=== PATIENT | male | born 1990 | race Caucasian/White ===

== ENCOUNTER 2017-10-08 08:31 | Emergency (ER) | payer SELFPAY ==
--- NOTE | 2017-10-08 08:58 | Emergency Department Record ---
History of Present Illness - General Chief Complaint: Cough Stated Complaint: COUGH Time Seen by Provider: 10/08/17 08:37 Source: Patient, RN notes reviewed Mode of Arrival: Ambulatory - History of Present Illness Initial Comments: cough for 2.5 weeks and seen 7 days ago at [facility] and given antibiotic three times a day and it lasted about 6 days. Sore throat and it hurts with coughing and he had blood work and EKG done at [facility]. No fever, vomiting after a cough. Sleeping alot. Patient states he is eating and drinking OK. smokes cigs 1 ppd. two 16 year old children had the same thing and are better. MD Complaint: Cough, Nasal congestion, Rhinorrhea, Sore throat Onset/Timin -: Week(s) Severity: Moderate Severity scale (1-10): 6 Consistency: Constant - Related Data Home Medications Medication Instructions Recorded Confirmed Last Taken Benzonatate [Tessalon] 1 cap PO Q8H PRN 10/08/17 10/08/17 Unknown Previous Rx's Medication Instructions Recorded Albuterol Sulfate [Proair Hfa] 1 - 2 puff IH .EVERY 4-6 HOURS PRN 10/08/17 #1 inhaler Azithromycin 250 mg PO DAILY #6 tablet 10/08/17 Prednisone [Prednisone 10Mg] 10 mg PO ASDIR #30 tab 10/08/17 Allergies Allergy/AdvReac Type Severity Reaction Status Date / Time No Known Drug Allergies Allergy Verified 10/08/17 08:41 Travel Screening - Travel/Exposure Within Last 30 Days Have you traveled within the last 30 days?: No Review of Systems Reviewed: No additional complaints except as noted below Constitutional: Reports: As per HPI. Denies: Chills, Fever, Malaise, Night sweats, Weakness, Weight change Eyes: Reports: As per HPI. Denies: Eye discharge, Eye pain, Photophobia, Vision change ENT: Reports: As per HPI, Congestion, Throat pain. Denies: Dental pain, Ear pain, Epistaxis, Hearing loss Respiratory: Reports: As per HPI, Cough. Denies: Dyspnea, Hemoptysis, Stridor, Wheezes Cardiovascular: Reports: As per HPI. Denies: Arrhythmia, Chest pain, Dyspnea on exertion, Edema, Murmurs, Orthopnea, Palpitations, Paroxysmal nocturnal dyspnea, Rheumatic Fever, Syncope Endocrine: Reports: As per HPI. Denies: Fatigue, Heat or cold intolerance, Polydipsia, Polyuria Gastrointestinal: Reports: As per HPI. Denies: Abdominal pain, Constipation, Diarrhea, Hematemesis, Hematochezia, Melena, Nausea, Vomiting Genitourinary: Reports: As per HPI. Denies: Dysuria, Frequency, Hematuria, Incontinence, Retention, Testicular pain, Testicular mass, Urgency Musculoskeletal: Reports: As per HPI. Denies: Arthralgia, Back pain, Gout, Joint swelling, Myalgia, Neck pain Skin: Reports: As per HPI. Denies: Bruising, Change in color, Change in hair/ nails, Lesions, Pruritus, Rash Neurological: Reports: As per HPI. Denies: Abnormal gait, Confusion, Headache, Numbness, Paresthesias, Seizure, Tingling, Tremors, Vertigo, Weakness Psychiatric: Reports: As per HPI. Denies: Anxiety, Auditory hallucinations, Depression, Homicidal thoughts, Suicidal thoughts, Visual hallucinations Hematological/Lymphatic: Reports: As per HPI. Denies: Anemia, Blood Clots, Easy bleeding, Easy bruising, Swollen glands Past Medical History - SOCIAL HISTORY Smoking Status: Current every day smoker Alcohol Use: None Drug Use: None - RESPIRATORY Hx Respiratory Disorders: No - CARDIOVASCULAR Hx Cardio Disorders: No - NEURO Hx Neuro Disorders: No - GI Hx GI Disorders: No - Hx Genitourinary Disorders: No - ENDOCRINE Hx Endocrine Disorders: No - MUSCULOSKELETAL Hx Musculoskeletal Disorders: No - PSYCH Hx Psych Problems: No - HEMATOLOGY/ONCOLOGY Hx Hematology/Oncology Disorders: No Family Medical History Any Significant Family History?: No Physical Exam - General General Appearance: Alert, Oriented x3, Cooperative, No acute distress - Head Head exam: Normal inspection - Eye Eye exam: Normal appearance, PERRL Pupils: Normal accommodation - ENT ENT exam: Normal exam, Mucous membranes moist, Normal external ear exam, Normal orophraynx, TM's normal bilaterally Ear exam: Normal external inspection. negative: External canal tenderness Nasal Exam: Normal inspection. negative: Discharge, Sinus tenderness Mouth exam: Normal external inspection, Tongue normal Teeth exam: Normal inspection. negative: Dental caries Throat exam: Normal inspection. negative: Tonsillar erythema, Tonsillar exudate - Neck Neck exam: Normal inspection, Full ROM. negative: Tenderness - Respiratory Respiratory exam: Wheezes (scant ), Other (spasmotic cough with deep breaths). negative: Respiratory distress - Cardiovascular Cardiovascular Exam: Regular rate, Normal rhythm, Normal heart sounds - GI/Abdominal GI/Abdominal exam: Soft, Normal bowel sounds. negative: Tenderness - Rectal Rectal exam: Deferred - exam: Deferred - Extremities Extremities exam: Normal inspection, Full ROM, Normal capillary refill. negative: Tenderness - Back Back exam: Reports: Normal inspection, Full ROM. Denies: Muscle spasm, Rash noted, Tenderness - Neurological Neurological exam: Alert, Normal gait, Oriented X3, Reflexes normal - Psychiatric Psychiatric exam: Normal affect, Normal mood - Skin Skin exam: Dry, Intact, Normal color, Warm Course Vital Signs 10/08/17 08:33 Temperature 98.7 F Pulse Rate 99 H Respiratory 20 Rate Blood Pressure 120/77 Pulse Ox 96 - Reevaluation(s) Reevaluation #1: looked on [facility] and no evidence of him recieving an antibiotic. supportative care. 10/08/17 09:12 Medical Decision Making - Data Complexity MDM Data: Labs Ordered and/or Reviewed (wbc 14,300), X-Ray Ordered and/or Reviewed (neg chest xray) - Lab Data Result diagrams: 10/08/17 09:05 Disposition Clinical Impression: Bronchitis Disposition: Home, Self-Care Condition: (1) Good Instructions: Acute Bronchitis (ED) Additional Instructions: follow up with family Prescriptions: Albuterol Sulfate [Proair Hfa] 1 - 2 puff IH .EVERY 4-6 HOURS PRN #1 inhaler PRN Reason: Difficulty In Breathing Azithromycin 250 mg PO DAILY #6 tablet Prednisone [Prednisone 10Mg] 10 mg PO ASDIR #30 tab Forms: Patient Portal Access Time of Disposition: 09:28 Quality - Quality Measures Quality Measures: N/A - Blood Pressure Screening Does Patient Have Any of the Following: No Blood Pressure Classification: Pre-Hypertensive BP Reading Systolic Measurement: 120 Diastolic Measurement: 77 Screening for High Blood Pressure: < Pre-Hypertensive BP, F/U Documented > [ G8950] Pre-Hypertensive Follow-up Interventions: Referral to alternative/primary care provider.
[2017-10-08] MEDS: IPRATROPIUM/ALBUTEROL (0.5MG/3MG) NEB INH ONE (09:11)
[2017-10-08 09:14] LABS: BASO % 0.1 % (0-6); EOS % 0.6 % (0-6); HEMOGLOBIN 15.6 gm/dl (14.0-18.0); MEAN CELL VOLUME 89.6 fl (81-97); MEAN CORPUSCULAR HEMOGLOBIN 31.8 pg (27-33); MEAN CORPUSCULAR HGB CONC 35.5 g/dl (32-36); MEAN PLATELET VOLUME 9.6 fl (7.4-10.4); MONO % 7.3 % (0-9); PLATELET COUNT 332 K/uL (130-400); RED BLOOD COUNT 4.91 M/uL (4.40-5.70); WHITE BLOOD COUNT W/O DIFF 14.3 K/uL (4.2-12.2)
--- NOTE | 2017-10-09 08:00 | RADIOLOGY REPORT ---
DATE: 10/08/2017 at 0944. EXAM: CHEST, TWO VIEWS. HISTORY: Cough for three weeks, nonproductive. Smoking history. TECHNIQUE: Upright PA and lateral views of the chest. COMPARISON: None. FINDINGS: The heart is not enlarged, and the pulmonary vasculature is nondilated. The lungs and pleural spaces are clear. IMPRESSION: NO RADIOGRAPHIC EVIDENCE OF ACUTE CARDIOPULMONARY DISEASE. JOB NUMBER: [id number] MTDD
== END 2017-10-08 09:57 | disposition home or self-care (01) ==
LOC: ER 08:31
DX: J20.9 Acute bronchitis, unspecified (principal); J02.9 Acute pharyngitis, unspecified; F17.210 Nicotine dependence, cigarettes, uncomplicated
CPT/HCPCS: 71020; 85025; 94640; 99283; 99284

== ENCOUNTER 2017-11-15 11:08 | Emergency (ER) | payer SELFPAY ==
[2017-11-15] MEDS ORDERED: ONDANSETRON HCL IV 4 MG/2 ML VIAL IV ONE (11:19)
[2017-11-15] MEDS ORDERED: 0.9 % SODIUM CHLORIDE 1,000 ML BAG IV ONE (11:19)
[2017-11-15] MEDS ORDERED: MORPHINE SULFATE 5 MG/ML PFS IVP ONE ×2 (11:20→11:32)
--- NOTE | 2017-11-15 11:28 | Emergency Department Record ---
History of Present Illness - General Chief complaint: Flank Pain Stated complaint: PAIN Time Seen by Provider: 11/15/17 11:17 Source: Patient Mode of Arrival: Ambulatory Limitations: No limitations - History of Present Illness Initial comments: The patient is here due to the acute onset of L flank pain just over an hour ago. He is having nausea with it and it does radiate to his L groin. The patient states he has had kidney stones in the past and this feels similar. He denies any recent illnesses. MD Complaint: Other Onset/Timin -: Hour(s) Location: Abdomen, Left flank Severity: Moderate Severity scale (1-10): 10 Quality: Aching Consistency: Constant, Intermittent - Related Data Previous Rx's Medication Instructions Recorded Albuterol Sulfate [Proair Hfa] 1 - 2 puff IH .EVERY 4-6 HOURS PRN 10/08/17 #1 inhaler Hydrocodone/Acetaminophen [[place] 1 - 2 each PO .EVERY 4-6 HRS PRN 11/15/17 5-325 Tablet] #10 tablet Ibuprofen [Motrin] 800 mg PO TID PRN #20 tab 11/15/17 Allergies Allergy/AdvReac Type Severity Reaction Status Date / Time No Known Drug Allergies Allergy Verified 11/15/17 11:15 Travel Screening - Travel/Exposure Within Last 30 Days Have you traveled within the last 30 days?: No - Travel/Exposure Within Last Year Have you traveled outside the [place] in the last year?: No - Additonal Travel Details Have you been exposed to anyone with a communicable illness?: No - Travel Symptoms Symptom Screening: None Review of Systems Constitutional: Denies: Chills, Fever Eyes: Denies: Eye discharge ENT: Denies: Congestion, Other Respiratory: Denies: Cough, Dyspnea Past Medical History - SOCIAL HISTORY Smoking Status: Current every day smoker Alcohol Use: None Drug Use: None - RESPIRATORY Hx Respiratory Disorders: No - CARDIOVASCULAR Hx Cardio Disorders: No - NEURO Hx Neuro Disorders: No - GI Hx GI Disorders: No - Hx Kidney Stones: Yes - ENDOCRINE Hx Endocrine Disorders: No - MUSCULOSKELETAL Hx Musculoskeletal Disorders: No - PSYCH Hx Psych Problems: No - HEMATOLOGY/ONCOLOGY Hx Hematology/Oncology Disorders: No Family Medical History Any Significant Family History?: Yes Physical Exam - General General Appearance: Alert, Cooperative, Moderate distress (due to pain.) - Head Head exam: Atraumatic, Normocephalic - Eye Eye exam: Normal appearance, PERRL - Neck Neck exam: Normal inspection, Full ROM. negative: Tenderness - Respiratory Respiratory exam: Normal lung sounds bilaterally. negative: Respiratory distress - Cardiovascular Cardiovascular Exam: Regular rate, Normal rhythm, Normal heart sounds Course Vital Signs 11/15/17 11:11 Pulse Rate 109 H Respiratory 30 H Rate Blood Pressure 127/89 Pulse Ox 98 - Reevaluation(s) Reevaluation #1: The patient is doing better after his first dose of Morphine and is much more calm. 11/15/17 11:37 Reevaluation #2: The patient is doing a LOT better at this time. His pain has pretty much resolved. I did explain to him that he will need to see his PCP if not better in 2-3 days. 11/15/17 13:25 Medical Decision Making - Data Complexity MDM Data: Labs Ordered and/or Reviewed, X-Ray Ordered and/or Reviewed - Lab Data Result diagrams: 11/15/17 11:28 11/15/17 11:28 - Radiology Data Radiology results: Report reviewed (CT: 1 mm stone at the L UVJ with mild hydro. ) Disposition Disposition: Discharge Clinical Impression: Ureteral stone with hydronephrosis Disposition: Home, Self-Care Condition: (2) Stable Instructions: Ureteral Stones (ED) Additional Instructions: Please take the Motrin and or [place] for pain. Please see your family doctor if not better in 3 days. Return to the ER for any worsening pain, fever, or vomiting. Prescriptions: Hydrocodone/Acetaminophen [[place] 5-325 Tablet] 1 - 2 each PO .EVERY 4-6 HRS PRN #10 tablet PRN Reason: Pain Ibuprofen [Motrin] 800 mg PO TID PRN #20 tab PRN Reason: Pain Forms: Patient Portal Access Time of Disposition: 13:27 Quality - Quality Measures Quality Measures: N/A - Blood Pressure Screening View Details: Yes Does Patient Have Any of the Following: No Blood Pressure Classification: Pre-Hypertensive BP Reading Systolic Measurement: 127 Diastolic Measurement: 89 Screening for High Blood Pressure: < Pre-Hypertensive BP, F/U Documented > [ G8950] Pre-Hypertensive Follow-up Interventions: Referral to alternative/primary care provider.
[2017-11-15 11:34] LABS: HEMATOCRIT 43.8 % (42.0-52.0); HEMOGLOBIN 15.3 gm/dl (14.0-18.0); MEAN CELL VOLUME 89.9 fl (81-97); MEAN CORPUSCULAR HEMOGLOBIN 31.4 pg (27-33); MEAN CORPUSCULAR HGB CONC 34.9 g/dl (32-36); MEAN PLATELET VOLUME 9.7 fl (7.4-10.4); PLATELET COUNT 353 K/uL (130-400); RED BLOOD COUNT 4.87 M/uL (4.40-5.70); RED CELL DISTRIBUTION WIDTH 12.4 % (11.5-14.5); WHITE BLOOD COUNT W/O DIFF 15.4 K/uL (4.2-12.2)
[2017-11-15 11:42] LABS: BLOOD UREA NITROGEN 13 mg/dL (6-20); CREATININE 1.1 mg/dL (0.7-1.2); EST GLOMERULAR FILTRATION RATE > 60 mL/min
[2017-11-15 11:45] LABS: GLUCOSE,RANDOM 154 mg/dL (74-109)
[2017-11-15] MEDS ORDERED: KETOROLAC 30 MG/ML VIAL IVP ONE (11:49)
[2017-11-15 13:14] LABS: URINE APPEARANCE CLEAR; URINE BILIRUBIN NEGATIVE (NEGATIVE); URINE BLOOD LARGE (NEGATIVE); URINE COLOR YELLOW; URINE GLUCOSE (UA) NEGATIVE (NEGATIVE); URINE KETONE NEGATIVE (NEGATIVE); URINE LEUKOCYTE ESTERASE NEGATIVE (NEGATIVE); URINE NITRITE NEGATIVE (NEGATIVE); URINE PROTEIN NEGATIVE (NEGATIVE); URINE UROBILINOGEN 0.2 E.U./dL (0.20 - 1.00)
[2017-11-15 13:19] LABS: URINE RBC >50 (NONE SEEN)
[2017-11-15 13:20] LABS: URINE MUCUS 2+
--- NOTE | 2017-11-16 19:13 | CT SCAN REPORT ---
EXAM: CT SCAN ABDOMEN/PELVIS WO CONTRAST HISTORY: LEFT-SIDED LOWER ABDOMINAL PAIN FOR TWO HOURS. KIDNEY STONE HISTORY. TECHNIQUE: Thin-collimation helical CT examination of the abdomen and pelvis is performed without oral or intravenous contrast administration. Lack of oral and IV contrast utilization limits evaluation of the bowel and solid viscera, respectively. COMPARISON: None. FINDINGS: The lung bases are clear. No pleural or pericardial effusion. The heart is not enlarged. Mild bilateral gynecomastia. The liver, spleen, pancreas, and adrenal glands are normal in appearance. The gallbladder is unremarkable. No biliary ductal dilatation is seen. The right kidney and right renal collecting system are normal in appearance. The left kidney is mildly enlarged with slight perinephric fat stranding. No left nephrolithiasis nor left renal mass. There is mild left hydroureteronephrosis down to the level of the vesicoureteral junction. Evaluation of the urinary bladder is limited due to a lack of distention, though there may be a tiny calculus measuring 1 mm projecting into the bladder lumen at the UVJ level. If this is not a calculus, this appearance could be the result of recently passed stone or obstruction from debris due to infection. No pelvic mass, lymphadenopathy, or free pelvic fluid. No gross bowel dilatation or bowel wall thickening. The appendix is visualized and normal in appearance. No lytic or blastic bone lesion. IMPRESSION: MILD LEFT HYDROURETERONEPHROSIS DOWN TO THE LEVEL OF THE VESICOURETERAL JUNCTION. THERE IS AN EQUIVOCAL 1 MM CALCULUS QUESTIONED PROJECTING INTO THE BLADDER LUMEN AT THE LEVEL OF THE UVJ VS. ARTIFACT. A RECENTLY PASSED STONE COULD HAVE THIS APPEARANCE. INFECTION COULD ALSO CAUSE MILD CHANGES OF OBSTRUCTION. JOB NUMBER: [id number] [facility]
== END 2017-11-15 13:34 | disposition home or self-care (01) ==
LOC: ER 11:08
DX: N13.2 Hydronephrosis with renal and ureteral calculous obstruction (principal); Z87.442 Personal history of urinary calculi
CPT/HCPCS: 99284 ×2; 96374; 96375; 80048; 81001; 85027; 74176; J1885; J2405; J2270; J7030

== ENCOUNTER 2018-07-16 14:37 | Emergency (ER) | payer SELFPAY ==
[2018-07-16] MEDS ORDERED: ONDANSETRON HCL IV 4 MG/2 ML VIAL IV ONE (15:22)
[2018-07-16] MEDS ORDERED: 0.9 % SODIUM CHLORIDE 1,000 ML BAG IV ONE ×2 (15:22→16:45)
--- NOTE | 2018-07-16 15:24 | Emergency Department Record ---
History of Present Illness - General Chief Complaint: Abdominal Pain Stated Complaint: ABD PAIN, DIARREAH, HEAD ACHE Time Seen by Provider: 07/16/18 15:17 Source: Patient Mode of Arrival: Ambulatory Limitations: No limitations - History of Present Illness Initial Comments: The patient is here due to a 30 hour hx of frequent nausea, vomiting, and watery diarrhea. The patient also is having a lot of abdominal cramping. He denies any fever or dysuria and states his girlfriend has a similar issue. There is no hx of back pain, CP, SOB but he does have a mild ROTH. MD Complaint: Abdominal pain, Other Onset/Timin -: Days(s) Location: Diffuse Radiation: None Severity scale (1-10): 3 Quality: Aching, Cramping Consistency: Constant Improves With: Nothing Worsens With: Nothing Associated Symptoms: Diarrhea, Nausea, Vomiting - Related Data Previous Rx's Medication Instructions Recorded Ciprofloxacin HCl [Cipro] 500 mg PO Q12HR #6 tablet 07/16/18 Ondansetron [Zofran Odt] 4 mg SL .Q4-6H PRN #12 tab.rapdis 07/16/18 Allergies Allergy/AdvReac Type Severity Reaction Status Date / Time No Known Drug Allergies Allergy Verified 11/15/17 11:15 Travel Screening - Travel/Exposure Within Last 30 Days Have you traveled within the last 30 days?: No Review of Systems Constitutional: Reports: Malaise. Denies: Chills, Fever Eyes: Denies: Eye discharge ENT: Denies: Congestion Respiratory: Denies: Cough, Dyspnea Cardiovascular: Denies: Arrhythmia, Chest pain Endocrine: Reports: Fatigue Gastrointestinal: Reports: Diarrhea, Nausea, Vomiting Genitourinary: Denies: Dysuria Musculoskeletal: Denies: Arthralgia Past Medical History - SOCIAL HISTORY Smoking Status: Current every day smoker Alcohol Use: None Drug Use: None - RESPIRATORY Hx Respiratory Disorders: No - CARDIOVASCULAR Hx Cardio Disorders: No - NEURO Hx Neuro Disorders: No - GI Hx GI Disorders: No - Hx Genitourinary Disorders: No Hx Kidney Stones: Yes - ENDOCRINE Hx Endocrine Disorders: No - MUSCULOSKELETAL Hx Musculoskeletal Disorders: No - PSYCH Hx Psych Problems: No - HEMATOLOGY/ONCOLOGY Hx Hematology/Oncology Disorders: No Family Medical History Any Significant Family History?: No Physical Exam - General General Appearance: Alert, Oriented x3, Cooperative, No acute distress - Head Head exam: Atraumatic, Normocephalic, Normal inspection - Eye Eye exam: Normal appearance, PERRL, EOMI - ENT Throat exam: Normal inspection. negative: Tonsillar erythema, Tonsillar exudate - Neck Neck exam: Normal inspection, Full ROM. negative: Tenderness - Respiratory Respiratory exam: Normal lung sounds bilaterally. negative: Respiratory distress - Cardiovascular Cardiovascular Exam: Regular rate, Normal rhythm, Normal heart sounds - GI/Abdominal GI/Abdominal exam: Soft, Normal bowel sounds. negative: Rebound, Rigid, Tenderness - Extremities Extremities exam: Normal inspection, Full ROM, Normal capillary refill. negative: Tenderness - Neurological Neurological exam: Alert. negative: Motor sensory deficit Course Vital Signs 07/16/18 15:14 Temperature 99.0 F Pulse Rate [ 89 Pulse Ox Probe] Respiratory 18 Rate Blood Pressure 108/71 [Left Arm] Pulse Ox 97 - Reevaluation(s) Reevaluation #1: The patient is doing a lot better at this time. He is resting comfortably with no pain now. I did discuss the lab results and the need for an oral Abx and F/U next week. 07/16/18 16:37 Reevaluation #2: The patient is doing well at this time. He is up walking and has much less discomfort. He has had no further vomiting or diarrhea here in the ER. He did receive 2 liters of IVF and is much better. On exam his abdomen is very soft and nontender in all 4 quads. 07/16/18 17:31 Medical Decision Making - Data Complexity MDM Data: Labs Ordered and/or Reviewed, X-Ray Ordered and/or Reviewed - Lab Data Result diagrams: 07/16/18 15:40 07/16/18 15:40 - Radiology Data Radiology results: Report reviewed (CT: Prob infectious Colitis.) Disposition Disposition: Discharge Clinical Impression: Nausea vomiting and diarrhea Disposition: Home, Self-Care Condition: (2) Stable Instructions: Gastroenteritis (ED) Additional Instructions: Please drink plenty of fluids and take the Zofran as needed. Please use the Cipro for 3 days. Please see your family doctor for recheck in 4 days if not completely better. Return to the ER for any worsening pain, fever, vomiting, or diarrhea. Prescriptions: Ciprofloxacin HCl [Cipro] 500 mg PO Q12HR #6 tablet Ondansetron [Zofran Odt] 4 mg SL .Q4-6H PRN #12 tab.rapdis PRN Reason: Nausea Forms: Patient Portal Access Time of Disposition: 17:34 Quality - Quality Measures Quality Measures: N/A - Blood Pressure Screening View Details: Yes Does Patient Have Any of the Following: No Blood Pressure Classification: Normal BP Reading Systolic Measurement: 110 Diastolic Measurement: 72 Screening for High Blood Pressure: < Normal BP, F/U Not Required > [G8783]
[2018-07-16 15:58] LABS: BASO % 0.1 % (0-6); EOS % 0.2 % (0-6); GRAN % 79.3 % (47-80); HEMATOCRIT 45.7 % (42.0-52.0); LYMPH % 11.4 % (16-45); MEAN CORPUSCULAR HEMOGLOBIN 31.5 pg (27-33); MEAN PLATELET VOLUME 9.6 fl (7.4-10.4); PLATELET COUNT 291 K/uL (130-400); RED BLOOD COUNT 5.08 M/uL (4.40-5.70); RED CELL DISTRIBUTION WIDTH 12.4 % (11.5-14.5); WHITE BLOOD COUNT W/O DIFF 9.7 K/uL (4.2-12.2)
[2018-07-16 16:13] LABS: BLOOD UREA NITROGEN 15 mg/dL (6-20); CREATININE 0.9 mg/dL (0.7-1.2); EST GLOMERULAR FILTRATION RATE > 60 mL/min
[2018-07-16 16:15] LABS: GLUCOSE,RANDOM 89 mg/dL (74-109)
[2018-07-16] MEDS ORDERED: KETOROLAC 30 MG/ML VIAL IVP ONE (16:16)
[2018-07-16 16:18] LABS: ALBUMIN 4.7 g/dL (4.0-5.0); ALKALINE PHOSPHATASE 80 U/L (40-129); ALT/SGPT 25 U/L (<41); AST/SGOT 22 U/L (10.0-50.0); BILIRUBIN,DIRECT < 0.2 mg/dL (0-0.3); LIPASE 18 U/L (13-60)
[2018-07-16 16:42] LABS: URINE APPEARANCE CLEAR; URINE BILIRUBIN MODERATE (NEGATIVE); URINE BLOOD SMALL (NEGATIVE); URINE GLUCOSE (UA) NEGATIVE (NEGATIVE); URINE LEUKOCYTE ESTERASE NEGATIVE (NEGATIVE); URINE NITRITE NEGATIVE (NEGATIVE); URINE UROBILINOGEN 0.2 E.U./dL (0.20 - 1.00)
[2018-07-16 16:43] LABS: URINE KETONE 160 mg/dL (NEGATIVE)
[2018-07-16 16:44] LABS: URINE COLOR DARK YELLOW
[2018-07-16 16:50] LABS: URINE EPITHELIAL CELLS NONE SEEN (FEW); URINE RBC 0 - 2 (NONE SEEN); URINE WBC NONE SEEN (0-2/hpf)
--- NOTE | 2018-07-20 13:11 | CT SCAN REPORT ---
EXAM: CT OF THE ABDOMEN AND PELVIS WITHOUT IV CONTRAST HISTORY: NAUSEA, VOMITING, AND DIARRHEA. TECHNIQUE: Helical CT scan of the abdomen and pelvis was obtained without intravenous or oral contrast. Comparison: CT of the pelvis 11/15/17, mild left hydronephrosis. FINDINGS: There is limited evaluation of the solid organs without intravenous contrast. The lung bases are clear. The liver and spleen have normal size. No inflammatory changes of the pancreas. No calcified gallstones. No renal or ureteral calculi. Interval resolution of the left hydronephrosis. Mild thickening of the colon, particularly the ascending and transverse colon. The appendix is normal. The small bowel has a normal caliber. No extraluminal gas or fluid. No adenopathy. The bony structures show mild degenerative changes of the spine. Old superior end plate injury of the L2 vertebral body. IMPRESSION: 1. FINDINGS OF COLITIS, LIKELY INFECTIOUS, ALTHOUGH INFLAMMATORY COLITIS IS ALSO POSSIBLE. 2. NORMAL APPENDIX. 3. NO EVIDENCE OF BOWEL OBSTRUCTION. 4. INTERVAL RESOLUTION OF THE LEFT HYDRONEPHROSIS. JOB NUMBER: [id number] [facility]
== END 2018-07-16 18:10 | disposition home or self-care (01) ==
LOC: ER 14:37
DX: K52.9 Noninfective gastroenteritis and colitis, unspecified (principal); R19.7 Diarrhea, unspecified; R11.2 Nausea with vomiting, unspecified
CPT/HCPCS: 99284 ×2; 96374; 96375; 96361; 83690; 85025; 80076; 80048; 81001; 74176; J1885; J2405; J7030

== ENCOUNTER 2018-11-30 13:03 | Emergency (ER) | payer SELFPAY ==
--- NOTE | 2018-11-30 13:26 | Emergency Department Record ---
History of Present Illness - General Chief complaint: Male Urogenital Problem Stated complaint: GROWTH ON RT TESTICLE Time Seen by Provider: 11/30/18 13:09 Source: Patient Mode of Arrival: Ambulatory Limitations: No limitations - History of Present Illness Initial comments: The patient has had a tender growth on the R side of the scrotum for 1-2 months. Now he seems to have pain being referred from the scrotum to the RLQ. The patient denies any nausea, vomiting, dysuria, fever or hematuria. He has had a ureter stone on the L side in the past. The patient did have a CT scan just over 4 months ago that did not demonstrate any stones in the kidneys. MD Complaint: Other Onset/Timin -: Month(s) Location: Right flank Radiation: R flank, RLQ Severity scale (1-10): 3 Quality: Dull, Sharp Consistency: Constant Improves with: Rest Worsens with: Movement - Related Data Sexually active: No (not in past couple month.) Previous Rx's Medication Instructions Recorded Cephalexin [Keflex] 500 mg PO QID #28 cap 11/30/18 Allergies Allergy/AdvReac Type Severity Reaction Status Date / Time No Known Drug Allergies Allergy Verified 11/15/17 11:15 Travel Screening - Travel/Exposure Within Last 30 Days Have you traveled within the last 30 days?: No - Travel/Exposure Within Last Year Have you traveled outside the [place] in the last year?: No - Additonal Travel Details Have you been exposed to anyone with a communicable illness?: No - Travel Symptoms Symptom Screening: None Review of Systems Constitutional: Denies: Chills, Fever Eyes: Denies: Eye discharge ENT: Denies: Congestion Respiratory: Denies: Cough, Dyspnea Past Medical History - SOCIAL HISTORY Smoking Status: Current every day smoker Alcohol Use: Rare Drug Use: None - RESPIRATORY Hx Respiratory Disorders: No - CARDIOVASCULAR Hx Cardio Disorders: No - NEURO Hx Neuro Disorders: No - GI Hx GI Disorders: No - Hx Genitourinary Disorders: No Hx Kidney Stones: Yes - ENDOCRINE Hx Endocrine Disorders: No - MUSCULOSKELETAL Hx Musculoskeletal Disorders: No - PSYCH Hx Psych Problems: No - HEMATOLOGY/ONCOLOGY Hx Hematology/Oncology Disorders: No Family Medical History Any Significant Family History?: No Physical Exam - General General Appearance: Alert, Cooperative, No acute distress - Head Head exam: Atraumatic, Normocephalic - Eye Eye exam: Normal appearance, PERRL - Neck Neck exam: Normal inspection, Full ROM. negative: Tenderness - Respiratory Respiratory exam: Normal lung sounds bilaterally. negative: Respiratory distress - Cardiovascular Cardiovascular Exam: Regular rate, Normal rhythm, Normal heart sounds - GI/Abdominal GI/Abdominal exam: Soft, Normal bowel sounds. negative: Distended, Guarding, Hernia, Rebound, Rigid, Tenderness - exam: negative: Circumcision, Normal inspection (There is a 7x7 mm size tender nodule to the proximal R scrotal area on the skin. There is no overlying erythema or ANY flunctuance but the nodule is quite tender. It clearly is not associated with the R testicle.), Scrotal swelling, Testicular tenderness, Urethral discharge - Extremities Extremities exam: Normal inspection, Full ROM, Normal capillary refill. negative: Tenderness Course Vital Signs 11/30/18 13:12 Temperature 99.4 F Pulse Rate [ 102 H Pulse Ox Probe] Respiratory 18 Rate Blood Pressure 132/84 [Left Arm] Pulse Ox 95 - Reevaluation(s) Reevaluation #1: I did explain to the patient that it appears he has an infected hair follicle on the skin of the scrotum. He is to take Keflex as directed and to see his PCP or Dr. Rodriguez next week as directed. He also is to use warm compresses to the area when possible. 11/30/18 14:00 Medical Decision Making - Lab Data Result diagrams: 11/30/18 13:20 11/30/18 13:20 Disposition Disposition: Discharge Clinical Impression: Single skin nodule Disposition: Home, Self-Care Condition: (2) Stable Instructions: Cyst (ED) Additional Instructions: Please use Keflex as directed and use warm compresses to the R scrotal area when possible. Please see your family doctor and Dr. Rodriguez next week as directed. Return the ER for any worsening pain, swelling, redness or fever. Prescriptions: Cephalexin [Keflex] 500 mg PO QID #28 cap Referrals: [facility] Special[facility] [Provider Group] Forms: Patient Portal Access Time of Disposition: 14:03 Quality - Quality Measures Quality Measures: N/A - Blood Pressure Screening View Details: Yes Does Patient Have Any of the Following: No Blood Pressure Classification: Normal BP Reading Systolic Measurement: 115 Diastolic Measurement: 79 Screening for High Blood Pressure: < Normal BP, F/U Not Required > [G0038]
[2018-11-30 13:32] LABS: BASO % 0.3 % (0-6); EOS % 0.5 % (0-6); HEMATOCRIT 46.1 % (42.0-52.0); LYMPH % 17.6 % (16-45); MEAN CELL VOLUME 90.4 fl (81-97); MEAN CORPUSCULAR HEMOGLOBIN 31.4 pg (27-33); MEAN CORPUSCULAR HGB CONC 34.7 g/dl (32-36); MEAN PLATELET VOLUME 9.9 fl (7.4-10.4); MONO % 7.6 % (0-9); PLATELET COUNT 352 K/uL (130-400); RED CELL DISTRIBUTION WIDTH 12.5 % (11.5-14.5); WHITE BLOOD COUNT W/O DIFF 10.7 K/uL (4.2-12.2)
[2018-11-30 13:36] LABS: URINE APPEARANCE CLEAR; URINE BILIRUBIN NEGATIVE (NEGATIVE); URINE BLOOD NEGATIVE (NEGATIVE); URINE COLOR YELLOW; URINE GLUCOSE (UA) NEGATIVE (NEGATIVE); URINE KETONE NEGATIVE (NEGATIVE); URINE LEUKOCYTE ESTERASE NEGATIVE (NEGATIVE); URINE NITRITE NEGATIVE (NEGATIVE); URINE PROTEIN TRACE (NEGATIVE)
[2018-11-30 13:39] LABS: BLOOD UREA NITROGEN 13 mg/dL (6-20)
[2018-11-30 13:40] LABS: CREATININE 0.7 mg/dL (0.7-1.2); EST GLOMERULAR FILTRATION RATE > 60 mL/min; TOTAL PROTEIN 8.1 g/dL (6.6-8.7)
[2018-11-30 13:42] LABS: GLUCOSE,RANDOM 103 mg/dL (74-109)
[2018-11-30 13:45] LABS: ALB/GLOB RATIO 1.5 (1.1-1.8); ALBUMIN 4.8 g/dL (4.0-5.0); ALKALINE PHOSPHATASE 86 U/L (55-149); ALT/SGPT 33 U/L (<41); AST/SGOT 26 U/L (10.0-50.0)
== END 2018-11-30 14:17 | disposition home or self-care (01) ==
LOC: ER 13:03
DX: N49.2 Inflammatory disorders of scrotum (principal); L73.9 Follicular disorder, unspecified; R10.31 Right lower quadrant pain; F17.210 Nicotine dependence, cigarettes, uncomplicated; Z87.442 Personal history of urinary calculi
CPT/HCPCS: 80053; 81003; 85025; 99283

== ENCOUNTER 2018-12-31 21:52 | Emergency (ER) | payer SELFPAY ==
[2018-12-31] MEDS ORDERED: IPRATROPIUM/ALBUTEROL (0.5MG/3MG) NEB INH ONE (22:20)
[2018-12-31] MEDS ORDERED: ACETAMINOPHEN 500 MG TABLET PO ONE (22:21)
[2018-12-31 22:38] LABS: STREP A SCREEN NEGATIVE (NEGATIVE)
--- NOTE | 2018-12-31 22:39 | Emergency Department Record ---
History of Present Illness - General Chief Complaint: Cough Stated Complaint: EAR PAIN,COUGH Time Seen by Provider: 12/31/18 22:13 Source: Patient Mode of Arrival: Ambulatory Limitations: No limitations - History of Present Illness Initial Comments: pt states he has a cough, congestion, sore throat, magallon Complaint: Cough, Fever, Nasal congestion, Rhinorrhea, Sore throat Onset/Timin -: Days(s) Severity scale (1-10): 4 Consistency: Constant Improves With: Cough suppressant Worsens With: Deep breaths Context: Sick contacts Associated Symptoms: Chills, Cough, Fever, Nasal congestion, Rhinorrhea, Shortness of breath, Sore throat - Related Data Home Medications Medication Instructions Recorded Confirmed Last Taken No Home Med [NO HOME MEDS] 12/31/18 12/31/18 Unknown Allergies Allergy/AdvReac Type Severity Reaction Status Date / Time No Known Drug Allergies Allergy Verified 11/15/17 11:15 Travel Screening - Travel/Exposure Within Last 30 Days Have you traveled within the last 30 days?: No - Travel Symptoms Symptom Screening: None Review of Systems Reviewed: No additional complaints except as noted below Constitutional: Reports: As per HPI, Chills, Fever. Denies: Malaise, Night sweats, Weakness, Weight change Eyes: Reports: As per HPI. Denies: Eye discharge, Eye pain, Photophobia, Vision change ENT: Reports: As per HPI, Congestion. Denies: Dental pain, Ear pain, Epistaxis , Hearing loss, Throat pain Respiratory: Reports: As per HPI, Cough, Dyspnea. Denies: Hemoptysis, Stridor, Wheezes Cardiovascular: Reports: As per HPI. Denies: Arrhythmia, Chest pain, Dyspnea on exertion, Edema, Murmurs, Orthopnea, Palpitations, Paroxysmal nocturnal dyspnea, Rheumatic Fever, Syncope Endocrine: Reports: As per HPI. Denies: Fatigue, Heat or cold intolerance, Polydipsia, Polyuria Gastrointestinal: Reports: As per HPI. Denies: Abdominal pain, Constipation, Diarrhea, Hematemesis, Hematochezia, Melena, Nausea, Vomiting Genitourinary: Reports: As per HPI. Denies: Dysuria, Frequency, Hematuria, Incontinence, Retention, Testicular pain, Testicular mass, Urgency Musculoskeletal: Reports: As per HPI. Denies: Arthralgia, Back pain, Gout, Joint swelling, Myalgia, Neck pain Skin: Reports: As per HPI. Denies: Bruising, Change in color, Change in hair/ nails, Lesions, Pruritus, Rash Neurological: Reports: As per HPI. Denies: Abnormal gait, Confusion, Headache, Numbness, Paresthesias, Seizure, Tingling, Tremors, Vertigo, Weakness Psychiatric: Reports: As per HPI. Denies: Anxiety, Auditory hallucinations, Depression, Homicidal thoughts, Suicidal thoughts, Visual hallucinations Hematological/Lymphatic: Reports: As per HPI. Denies: Anemia, Blood Clots, Easy bleeding, Easy bruising, Swollen glands Past Medical History - SOCIAL HISTORY Smoking Status: Current every day smoker - RESPIRATORY Hx Respiratory Disorders: No - CARDIOVASCULAR Hx Cardio Disorders: No - NEURO Hx Neuro Disorders: No - GI Hx GI Disorders: No - Hx Genitourinary Disorders: Yes Hx Kidney Stones: Yes - ENDOCRINE Hx Endocrine Disorders: No - MUSCULOSKELETAL Hx Musculoskeletal Disorders: No - PSYCH Hx Psych Problems: No - HEMATOLOGY/ONCOLOGY Hx Hematology/Oncology Disorders: No Family Medical History Any Significant Family History?: Yes Hx Heart Disease: Grandparents Hx Stroke: Grandparents Physical Exam - General General Appearance: Alert, Oriented x3, Cooperative, Mild distress - Head Head exam: Normal inspection - Eye Eye exam: Normal appearance, PERRL, EOMI Pupils: Normal accommodation - ENT ENT exam: Normal exam, Mucous membranes moist, Normal external ear exam, Normal orophraynx, TM's normal bilaterally Ear exam: Normal external inspection. negative: External canal tenderness Nasal Exam: Normal inspection. negative: Discharge, Sinus tenderness Mouth exam: Normal external inspection, Tongue normal Teeth exam: Normal inspection. negative: Dental caries Throat exam: Tonsillar erythema. negative: Tonsillar exudate - Neck Neck exam: Normal inspection, Full ROM. negative: Tenderness - Respiratory Respiratory exam: Normal lung sounds bilaterally. negative: Respiratory distress - Cardiovascular Cardiovascular Exam: Normal rhythm, Normal heart sounds, Tachycardia - GI/Abdominal GI/Abdominal exam: Soft, Normal bowel sounds. negative: Tenderness - Rectal Rectal exam: Deferred - exam: Deferred - Extremities Extremities exam: Normal inspection, Full ROM, Normal capillary refill. negative: Tenderness - Back Back exam: Reports: Normal inspection, Full ROM. Denies: Muscle spasm, Rash noted, Tenderness - Neurological Neurological exam: Alert, Normal gait, Oriented X3, Reflexes normal - Psychiatric Psychiatric exam: Normal affect, Normal mood - Skin Skin exam: Dry, Intact, Normal color, Warm Course Vital Signs 12/31/18 21:55 Temperature 100.7 F H Pulse Rate 100 H Respiratory 18 Rate Blood Pressure 124/81 Pulse Ox 98 - Reevaluation(s) Reevaluation #1: 12/31/18 23:06 pt feels better Disposition Disposition: Discharge Clinical Impression: Viral syndrome Disposition: Home, Self-Care Condition: (1) Good Instructions: Cold Symptoms (ED), Viral Syndrome (ED) Additional Instructions: follow up with family doctor. return sooner if worse. push fluids. tylenol and motrin as needed. Quality - Quality Measures Quality Measures: N/A - Blood Pressure Screening Does Patient Have Any of the Following: No Blood Pressure Classification: Pre-Hypertensive BP Reading Systolic Measurement: 124 Diastolic Measurement: 81 Screening for High Blood Pressure: < Pre-Hypertensive BP, F/U Documented > [ G8950] Pre-Hypertensive Follow-up Interventions: Follow-up with rescreen every year.
[2018-12-31 22:47] LABS: INFLUENZA A NEGATIVE (NEGATIVE); INFLUENZA B NEGATIVE (NEGATIVE)
[2018-12-31] MEDS ORDERED: GUAIFENESIN/D-METH. 10 ML UDC PO ONE (23:08)
--- NOTE | 2019-01-03 11:59 | RADIOLOGY REPORT ---
DATE: 12/31/2018 at 10:32 p.m. EXAM: TWO-VIEW CHEST. HISTORY: Shortness of breath, cough, ear pain for two to three days. TECHNIQUE: PA and lateral views. COMPARISON: Two-view chest dated 10/08/2017. FINDINGS: Heart size at about the upper limits of normal. No definite acute infiltrate seen, and no pleural effusion or pneumothorax evident. IMPRESSION: HEART SIZE AT ABOUT THE UPPER LIMITS OF NORMAL. NO ACUTE INFILTRATE EVIDENT. JOB NUMBER: [id number] MTDD
== END 2018-12-31 23:19 | disposition home or self-care (01) ==
LOC: ER 21:52
DX: B34.9 Viral infection, unspecified (principal); R05 Cough; R06.02 Shortness of breath; R42 Dizziness and giddiness; F17.210 Nicotine dependence, cigarettes, uncomplicated
CPT/HCPCS: 71046; 87400; 87880; 93005; 93010; 94640; 99284

== ENCOUNTER 2019-04-06 15:35 | Emergency (ER) | payer SELFPAY ==
--- NOTE | 2019-04-06 16:01 | Emergency Department Record ---
History of Present Illness - General Chief Complaint: Neck Injury/Pain Stated Complaint: PAIN UNDER CHIN Time Seen by Provider: 04/06/19 15:52 Source: Patient Mode of Arrival: Ambulatory Limitations: No limitations - History of Present Illness Initial Comments: 29 yo male presents with three days of pain. The pain is on the left side of the neck. No injury. No fever. He pain with swallowing but no difficulty with swallowing. He has pain with any palpation, and turning or looking up and to the right. He felt like he might have some swollen glands. No changes in his voice. No dental pain. No trauma. MD Complaint: Neck pain -: Days(s) (3) Place: Home Radiation: Other (Neck) Severity: Moderate Quality: Sharp Consistency: Constant Improves With: None Worsens With: Movement of neck, Swallowing Context: Other (No injury) Associated Symptoms: Swollen glands Treatments Prior to Arrival: Ibuprofen - Related Data Previous Rx's Medication Instructions Recorded Cephalexin [Keflex] 500 mg PO TID #21 cap 04/06/19 Allergies Allergy/AdvReac Type Severity Reaction Status Date / Time No Known Drug Allergies Allergy Verified 04/06/19 15:54 Review of Systems Constitutional: Denies: Chills, Fever, Malaise, Weakness Eyes: Denies: Eye discharge ENT: Reports: Throat pain. Denies: Congestion, Dental pain, Epistaxis Respiratory: Reports: Cough. Denies: Dyspnea, Hemoptysis, Stridor Cardiovascular: Denies: Chest pain, Palpitations, Syncope Endocrine: Denies: Fatigue Gastrointestinal: Denies: Abdominal pain, Diarrhea, Nausea, Vomiting Genitourinary: Denies: Dysuria, Frequency, Hematuria Musculoskeletal: Denies: Arthralgia, Myalgia Skin: Denies: Bruising, Change in color, Rash Neurological: Denies: Headache, Numbness, Weakness Psychiatric: Denies: Anxiety Hematological/Lymphatic: Denies: Easy bleeding, Easy bruising, Swollen glands Past Medical History - SOCIAL HISTORY Smoking Status: Current every day smoker - RESPIRATORY Hx Respiratory Disorders: No - CARDIOVASCULAR Hx Cardio Disorders: No - NEURO Hx Neuro Disorders: No - GI Hx GI Disorders: No - Hx Genitourinary Disorders: Yes Hx Kidney Stones: Yes - ENDOCRINE Hx Endocrine Disorders: No - MUSCULOSKELETAL Hx Musculoskeletal Disorders: No - PSYCH Hx Psych Problems: No - HEMATOLOGY/ONCOLOGY Hx Hematology/Oncology Disorders: No Family Medical History Hx Heart Disease: Grandparents Hx Stroke: Grandparents Physical Exam - General General Appearance: Alert, Oriented x3, Cooperative, No acute distress, Other (Clear voice) Limitations: No limitations - Head Head exam: Atraumatic, Normal inspection - Eye Eye exam: Normal appearance, PERRL. negative: Conjunctival injection, Pe riorbital swelling, Scleral icterus - ENT ENT exam: Normal exam, Mucous membranes moist, Normal orophraynx Ear exam: Normal external inspection Nasal Exam: Normal inspection Mouth exam: Normal external inspection Teeth exam: Normal inspection Throat exam: Normal inspection, Other (Normal uvula). negative: Tonsillar erythema, Tonsillomegaly, Tonsillar exudate, R peritonsillar mass, L peritonsillar mass - Neck Neck exam: Full ROM, Tenderness (tenderness on the left side of the neck mid lateral to the angle of the jaw, redness, limitation due to large virgen). negative: Meningismus - Respiratory Respiratory exam: Normal lung sounds bilaterally, Other (Clear voice). negative: Respiratory distress, Rhonchi, Stridor, Wheezes - Cardiovascular Cardiovascular Exam: Regular rate, Normal rhythm, Normal heart sounds - Extremities Extremities exam: Normal inspection - Neurological Neurological exam: Alert, Normal gait, Oriented X3 - Psychiatric Psychiatric exam: Normal affect, Normal mood. negative: Agitated, Anxious - Skin Skin exam: Dry, Intact, Normal color, Warm. negative: Cyanosis, Diaphoretic, Erythema, Mottled Course - Reevaluation(s) Reevaluation #1: 04/06/19 16:02 The patient was examined The area is very tender. He has a very full virgen that obscures the examination to a certain extent I recommend CT given the severity of the pain and tenderness 04/06/19 17:10 The CBC is normal The CRP is 0.66 04/06/19 17:[address] was reviewed. No mass, abscess or other pathology. There is a single lymph node under the site he marked as the painful area. This may represent and adenitis. We discussed the results, reasons for return check and close follow up. We discussed the need to have the lymph node rechecked if it does not resolve in the next 2-4 weeks as he may need a biopsy. 04/06/19 17:33 Medical Decision Making - Lab Data Result diagrams: 04/06/19 16:10 04/06/19 16:10 Disposition Disposition: Discharge Clinical Impression: Adenitis, acute Disposition: Home, Self-Care Condition: (1) Good Instructions: Adenitis (ED) Additional Instructions: Call your doctor for the next available follow up appointment Review this ER visit and the tests performed with your family doctor Return to the ER for a recheck if worse, any new concerns or questions Take the prescriptions provided as directed Prescriptions: Cephalexin [Keflex] 500 mg PO TID #21 cap Forms: Patient Portal Access Time of Disposition: 17:33 Quality - Quality Measures Quality Measures: N/A - Blood Pressure Screening Does Patient Have Any of the Following: No Blood Pressure Classification: Pre-Hypertensive BP Reading Systolic Measurement: 128 Diastolic Measurement: 76 Screening for High Blood Pressure: < Pre-Hypertensive BP, F/U Documented > [G8950] Pre-Hypertensive Follow-up Interventions: Referral to alternative/primary care provider.
[2019-04-06] MEDS ORDERED: DEXAMETHASONE SOD PHOSPHATE 10MG/ML VIAL IVP ONE (16:02)
[2019-04-06 16:16] LABS: ABSOLUTE NEUTROPHIL COUNT 7.73; BASO % 0.2 % (0-6); GRAN % 73.8 % (47-80); HEMATOCRIT 42.9 % (42.0-52.0); HEMOGLOBIN 14.9 gm/dl (14.0-18.0); LYMPH % 16.3 % (16-45); MEAN CELL VOLUME 91.9 fl (81-97); MEAN CORPUSCULAR HEMOGLOBIN 31.9 pg (27-33); MEAN CORPUSCULAR HGB CONC 34.7 g/dl (32-36); MEAN PLATELET VOLUME 9.7 fl (7.4-10.4); MONO % 8.7 % (0-9); PLATELET COUNT 295 K/uL (130-400); RED BLOOD COUNT 4.67 M/uL (4.40-5.70); RED CELL DISTRIBUTION WIDTH 12.3 % (11.5-14.5); WHITE BLOOD COUNT W/O DIFF 10.5 K/uL (4.2-12.2)
[2019-04-06 16:30] LABS: BLOOD UREA NITROGEN 17 mg/dL (6-20); CREATININE 0.8 mg/dL (0.7-1.2); EST GLOMERULAR FILTRATION RATE > 60 mL/min
[2019-04-06 16:32] LABS: GLUCOSE,RANDOM 97 mg/dL (74-109)
[2019-04-06 16:35] LABS: C-REACTIVE PROTEIN 0.66 mg/dL (<0.5)
--- NOTE | 2019-04-08 05:44 | CT SCAN REPORT ---
EXAM: CT SCAN SOFT TISSUE NECK W CONTRAST HISTORY: SHARP PAIN, LEFT SIDE OF NECK ALMOST UNDER JAW, SOME PAIN WHILE SWALLOWING FOR THREE DAYS. TECHNIQUE: Axial CT scan of the neck performed following IV contrast administration. Please see the medical record for IV contrast specifics. Prior to the scans, a small metallic BB was placed by the chief cardiopulmonary technologist in the region of the patient's symptoms along the left side of the neck. COMPARISON: No prior neck CT with which to compare. FINDINGS: Cyst or polyp in the anterior aspect of the left maxillary sinus measuring about 11 mm in size. Elsewhere, the visualized paranasal sinuses as well as the mastoids all appear clear. 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 Orbits appear unremarkable. No parotid or submandibular gland mass identified. No thyroid nodule seen. Piriform sinuses are maintained. Epiglottis of normal size. No prevertebral soft tissue swelling evident. No superior mediastinal adenopathy seen. There are normal-size cervical nodes but no definite cervical adenopathy identified. The small metallic BB placed by the chief cardiopulmonary technologist, in the area of clinical concern on the left, is located at a level just below the hyoid bone and just above the thyroid cartilage. There is an underlying, somewhat elongated, left-sided cervical node superficial to the left submandibular gland. Although this measures about 15 mm in length, this only measures about 6 mm in short-axis. Lung apices appear clear. IMPRESSION: 1. NO DEFINITE SOFT TISSUE MASS OR ADENOPATHY SEEN IN THE NECK. THERE IS A MILDLY PROMINENT NODE SUPERFICIAL TO THE LEFT SUBMANDIBULAR GLAND IN THE AREA OF CLINICAL CONCERN THAT MEASURES ABOUT 15 MM IN LENGTH AND ONLY ABOUT 6 MM IN DIAMETER. 2. 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 3. SMALL CYST OR POLYP ANTERIORLY LEFT MAXILLARY SINUS. JOB NUMBER: [id number] [facility]
== END 2019-04-06 17:43 | disposition home or self-care (01) ==
LOC: ER 15:35
DX: L04.0 Acute lymphadenitis of face, head and neck (principal); M54.2 Cervicalgia; F17.210 Nicotine dependence, cigarettes, uncomplicated
CPT/HCPCS: 70491; 80048; 85025; 86140; 96374; 99284

== ENCOUNTER 2019-04-08 23:39 | Emergency (ER) | payer SELFPAY ==
[2019-04-08] MEDS ORDERED: 0.9 % SODIUM CHLORIDE 1000ML 1,000 ML IV SCH (23:45)
[2019-04-08] MEDS ORDERED: DIAZEPAM (VALIUM) 5MG/ML **10ML VIAL IVP ONE (23:50)
[2019-04-08] MEDS ORDERED: KETOROLAC 30 MG/ML VIAL IVP ONE (23:50)
--- NOTE | 2019-04-08 23:57 | Emergency Department Record ---
History of Present Illness - General Chief complaint: Pain Stated complaint: left side neck pain Time Seen by Provider: 04/08/19 23:40 Source: Patient Mode of Arrival: Ambulatory Limitations: No limitations - History of Present Illness Initial comments: 29 yo male returns to ED for evaluation of worsening pain symptoms to the left sub-mandibular region following recent ED visit 48 hours ago. Patient reports that he was diagnosed with an enlarged lymph node on CT imaging, reports that he has been taking Keflex TID for his symptoms. Patient was instructed to return to the ED if his pain symptoms. Patient denies fevers, chills, or injury to the affected area, denies health problems at his baseline. Patient reports that he needs to "hold pressure to the area to improve his pain symptoms". MD Complaint: Neck Pain Onset/Timin -: Week(s) Location: Left Severity scale (1-10): 7 Quality: Burning, Stabbing Consistency: Constant Improves with: Medication Worsens with: Other Associated Symptoms: Denies other symptoms - Related Data Previous Rx's Medication Instructions Recorded Cephalexin [Keflex] 500 mg PO TID #21 cap 04/06/19 Prednisone [Prednisone 20Mg] 20 mg PO BID #10 tab 04/09/19 Allergies Allergy/AdvReac Type Severity Reaction Status Date / Time No Known Drug Allergies Allergy Verified 04/06/19 15:54 Travel Screening - Travel/Exposure Within Last 30 Days Have you traveled within the last 30 days?: No - Travel/Exposure Within Last Year Have you traveled outside the [place] in the last year?: No - Additonal Travel Details Have you been exposed to anyone with a communicable illness?: No - Travel Symptoms Symptom Screening: None Review of Systems Constitutional: Denies: Chills, Fever, Malaise, Night sweats Eyes: Denies: Eye discharge, Eye pain ENT: Denies: Congestion, Ear pain, Epistaxis Respiratory: Denies: Cough, Dyspnea Cardiovascular: Denies: Chest pain, Dyspnea on exertion Endocrine: Denies: Fatigue, Heat or cold intolerance Gastrointestinal: Denies: Abdominal pain, Nausea, Vomiting Genitourinary: Denies: Incontinence, Retention Musculoskeletal: Reports: Neck pain. Denies: Arthralgia, Back pain Skin: Denies: Bruising, Change in color Neurological: Denies: Abnormal gait, Confusion, Headache, Seizure Psychiatric: Denies: Anxiety Hematological/Lymphatic: Denies: Anemia, Blood Clots Past Medical History - SOCIAL HISTORY Smoking Status: Current every day smoker Alcohol Use: None Drug Use: None - RESPIRATORY Hx Respiratory Disorders: No - CARDIOVASCULAR Hx Cardio Disorders: No - NEURO Hx Neuro Disorders: No - GI Hx GI Disorders: No - Hx Genitourinary Disorders: Yes Hx Kidney Stones: Yes - ENDOCRINE Hx Endocrine Disorders: No - MUSCULOSKELETAL Hx Musculoskeletal Disorders: No - PSYCH Hx Psych Problems: No - HEMATOLOGY/ONCOLOGY Hx Hematology/Oncology Disorders: No Family Medical History Any Significant Family History?: Yes Hx Heart Disease: Grandparents Hx Stroke: Grandparents Physical Exam - General General Appearance: Alert, Oriented x3, Cooperative, Moderate distress Limitations: No limitations - Head Head exam: Atraumatic, Normocephalic, Normal inspection Head exam detail: negative: Abrasion, Contusion, Richmond's sign, General tenderness, Hematoma, Laceration - Eye Eye exam: Normal appearance. negative: Conjunctival injection, Periorbital swelling, Periorbital tenderness, Scleral icterus - ENT Ear exam: negative: Auricular hematoma, Auricular trauma Nasal Exam: negative: Active bleeding, Discharge, Dried blood, Foreign body Mouth exam: negative: Drooling, Laceration, Muffled voice, Tongue elevation - Neck Neck exam: Tenderness, Other (TTP left submandibular region on examination, no crepitation present, mild lymphadenopathy is palpated on examination.). negative: Meningismus - Respiratory Respiratory exam: Normal lung sounds bilaterally. negative: Rales, Respiratory distress, Rhonchi, Stridor - Cardiovascular Cardiovascular Exam: Regular rate, Normal rhythm, Normal heart sounds - GI/Abdominal GI/Abdominal exam: Soft. negative: Rebound, Rigid, Tenderness - Rectal Rectal exam: Deferred - exam: Deferred - Extremities Extremities exam: Normal inspection. negative: Pedal edema, Tenderness - Back Back exam: Denies: CVA tenderness (R), CVA tenderness (L) - Neurological Neurological exam: Alert, Normal gait, Oriented X3 - Psychiatric Psychiatric exam: Normal affect, Normal mood - Skin Skin exam: Normal color. negative: Abrasion Type of lesion: negative: abrasion Course Vital Signs 04/08/19 23:42 Pulse Rate 73 Respiratory 24 Rate Blood Pressure 131/79 Pulse Ox 99 - Reevaluation(s) Reevaluation #1: 04/08/19 23:[address] Soft-tissue Neck reviewed from 04/06/19: No mass or lymphadenopathy Cervical lymph node measuring 15x6 mm left submandibular region on examination Polyp left maxillary sinus. As the patient's pain symptoms appear to have significantly worsened, will re- image with CT to determine if there are any new findings to exclude an acute surgical process. Will administer Valium and Toradol for his pain symptoms. Reevaluation #2: 04/09/19 00:16 Laboratory studies were reviewed and are grossly unremarkable for an acute process. Reevaluation #3: 04/09/19 01:00 patient reassessed, playing a game on his mobile phone but reports that his pain symptoms are "worse" since receiving Valium and Toradol. Patient denies taking anything other than Ibuprofen for his pain symptoms at home (asked twice). UDS positive for Oxycodone however. Will administer Decadron as the patient reports steroid imporved his symptoms [address] imaging results. Reevaluation #4: 04/09/19 01:09 CT Soft-Tissue Neck: No acute process Retention cyst/maxillary sinus Patient is now asking for something to eat/drink, symptoms appears subjectively improved. Will discharge the patient home on Prednisone with instructions to call Dr. Morrow's office tomorrow for evaluation. 04/09/19 01:15 Patient was updated on his CT imaging result, currently eating elizabeth crackers/saltines, reports "chewing helps my symptoms". Medical Decision Making - Lab Data Result diagrams: 04/08/19 23:55 04/08/19 23:55 Disposition Disposition: Discharge Clinical Impression: Neck pain Disposition: Home, Self-Care Condition: (2) Stable Instructions: Neck Pain (ED) Additional Instructions: Return to ED if your symptoms worsen or if you have any concerns. Prednisone as directed. Follow-up with Dr. Morrow in 3-5 days as directed. Prescriptions: Prednisone [Prednisone 20Mg] 20 mg PO BID #10 tab Forms: Patient Portal Access Time of Disposition: 01:12 Quality - Quality Measures Quality Measures: N/A - Blood Pressure Screening Does Patient Have Any of the Following: No Blood Pressure Classification: Pre-Hypertensive BP Reading Systolic Measurement: 131 Diastolic Measurement: 79 Screening for High Blood Pressure: < Pre-Hypertensive BP, F/U Documented > [G8950] Pre-Hypertensive Follow-up Interventions: Referral to alternative/primary care provider.
[2019-04-09 00:02] LABS: ABSOLUTE NEUTROPHIL COUNT 5.37; BASO % 0.4 % (0-6); EOS % 1.2 % (0-6); GRAN % 53.3 % (47-80); HEMATOCRIT 40.9 % (42.0-52.0); HEMOGLOBIN 14.1 gm/dl (14.0-18.0); LYMPH % 34.3 % (16-45); MEAN CELL VOLUME 91.7 fl (81-97); MEAN CORPUSCULAR HEMOGLOBIN 31.6 pg (27-33); MEAN CORPUSCULAR HGB CONC 34.5 g/dl (32-36); MEAN PLATELET VOLUME 9.9 fl (7.4-10.4); MONO % 10.8 % (0-9); PLATELET COUNT 287 K/uL (130-400); RED BLOOD COUNT 4.46 M/uL (4.40-5.70); RED CELL DISTRIBUTION WIDTH 12.3 % (11.5-14.5); WHITE BLOOD COUNT W/O DIFF 10.1 K/uL (4.2-12.2)
[2019-04-09 00:11] LABS: BLOOD UREA NITROGEN 31 mg/dL (6-20); CREATININE 0.8 mg/dL (0.7-1.2); EST GLOMERULAR FILTRATION RATE > 60 mL/min; TOTAL PROTEIN 7.1 g/dL (6.6-8.7)
[2019-04-09 00:13] LABS: GLUCOSE,RANDOM 88 mg/dL (74-109)
[2019-04-09 00:16] LABS: ALB/GLOB RATIO 1.6 (1.1-1.8); ALBUMIN 4.4 g/dL (4.0-5.0); ALKALINE PHOSPHATASE 74 U/L (40-129); ALT/SGPT 17 U/L (<41); AST/SGOT 17 U/L (10.0-50.0)
[2019-04-09 00:52] LABS: URINE APPEARANCE CLEAR; URINE BILIRUBIN NEGATIVE (NEGATIVE); URINE BLOOD NEGATIVE (NEGATIVE); URINE COLOR YELLOW; URINE GLUCOSE (UA) NEGATIVE (NEGATIVE); URINE KETONE NEGATIVE (NEGATIVE); URINE LEUKOCYTE ESTERASE NEGATIVE (NEGATIVE); URINE NITRITE NEGATIVE (NEGATIVE); URINE PROTEIN NEGATIVE (NEGATIVE); URINE UROBILINOGEN 0.2 E.U./dL (0.20 - 1.00)
[2019-04-09 00:55] LABS: AMPHETAMINE SCREEN URINE NOT DETECTED; BARBITURATE SCREEN URINE NOT DETECTED; BENZODIAZEPINE SCREEN URINE NOT DETECTED; COCAINE SCREEN URINE NOT DETECTED; METHADONE SCREEN URINE NOT DETECTED; METHAMPHETAMINE SCREEN NOT DETECTED; OPIATE SCREEN URINE NOT DETECTED; OXYCODONE SCREEN URINE DETECTED; PHENCYCLIDINE SCREEN URINE NOT DETECTED; PROPOXYPHENE SCREEN URINE NOT DETECTED; THC SCREEN URINE NOT DETECTED; TRICYCLIC ANTIDEPRESSANT SCRN NOT DETECTED
[2019-04-09] MEDS ORDERED: DEXAMETHASONE SOD PHOSPHATE 10MG/ML VIAL IVP ONE (01:00)
--- NOTE | 2019-04-11 22:08 | CT SCAN REPORT ---
EXAM: CT SCAN SOFT TISSUE NECK W CONTRAST HISTORY: LEFT-SIDED NECK PAIN FOR ONE WEEK. TECHNIQUE: CT of the neck soft tissues performed with 100 mL Omnipaque-300 intravenous contrast. COMPARISON: CT neck soft tissues 04/06/2019. FINDINGS: Small retention cysts along the anterior wall of the left maxillary sinus. Minimal prominence of the adenoids and palatine tonsils, symmetric. No drainable soft tissue fluid collection. No cervical lymphadenopathy. Symmetric appearance of the parotid and submandibular glands. Unremarkable CT appearance of the thyroid. Dental caries involving the right mandibular second molar. Visualized upper lungs are clear. 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 IMPRESSION: 1. NO ACUTE SOFT TISSUE ABNORMALITY IDENTIFIED IN THE NECK. NO SIGNIFICANT CHANGE FROM RECENT CT NECK SOFT TISSUE COMPARISON. 2. SMALL LEFT MAXILLARY SINUS POLYP. 3. RIGHT MANDIBULAR MOLAR DENTAL CARIES. 4. MINIMAL SYMMETRIC PROMINENCE OF THE TONSILS, MAY REPRESENT MILD HYPERPLASIA. NO DRAINABLE SOFT TISSUE FLUID COLLECTION IS IDENTIFIED. JOB NUMBER: [id number] MTDD
== END 2019-04-09 01:37 | disposition home or self-care (01) ==
LOC: ER 23:39
DX: M54.2 Cervicalgia (principal); R68.84 Jaw pain; R59.0 Localized enlarged lymph nodes; F17.210 Nicotine dependence, cigarettes, uncomplicated
CPT/HCPCS: 99284 ×2; 96376; 96374; 96375; 85025; 80053; 81003; 80305; 70491; Q9967; J1885; J1100; J3360; J7030

== ENCOUNTER 2019-08-14 20:22 | Emergency (ER) | payer SELFPAY ==
--- NOTE | 2019-08-14 20:49 | Emergency Department Record ---
History of Present Illness - General Chief complaint: Flu Like Symptoms Stated complaint: COUGH,BODY ACHE,SORE THROAT Time Seen by Provider: 08/14/19 20:49 Source: Patient Mode of Arrival: Ambulatory Limitations: No limitations - History of Present Illness Initial comments: pt has had cough, body aches, headache, chills, sore throat for 2 days. Onset/Timin -: Days(s) Location: Face, RUE Severity: Mild Severity scale (1-10): 3 Quality: Aching Consistency: Constant Improves with: None Worsens with: Other Associated Symptoms: Fever/chills, Headaches, Nausea/vomiting, Myalgias - Keyes Coma Scale Eye Response: (4) Open spontaneously Motor Response: (6) Obeys commands Verbal Response: (5) Oriented Keyes Total: 15 - Related Data Allergies Allergy/AdvReac Type Severity Reaction Status Date / Time No Known Drug Allergies Allergy Verified 04/06/19 15:54 Travel Screening - Travel/Exposure Within Last 30 Days Have you traveled within the last 30 days?: Yes Location Detail:: [place] - Travel/Exposure Within Last Year Have you traveled outside the [place] in the last year?: No - Additonal Travel Details Have you been exposed to anyone with a communicable illness?: No - Travel Symptoms Symptom Screening: None Review of Systems Reviewed: No additional complaints except as noted below Constitutional: Reports: As per HPI. Denies: Chills, Fever, Malaise, Night sweats, Weakness, Weight change Eyes: Reports: As per HPI. Denies: Eye discharge, Eye pain, Photophobia, Vision change ENT: Reports: As per HPI, Congestion, Throat pain. Denies: Dental pain, Ear pain, Epistaxis, Hearing loss Respiratory: Reports: As per HPI, Cough. Denies: Dyspnea, Hemoptysis, Stridor, Wheezes Cardiovascular: Reports: As per HPI. Denies: Arrhythmia, Chest pain, Dyspnea on exertion, Edema, Murmurs, Orthopnea, Palpitations, Paroxysmal nocturnal dyspnea, Rheumatic Fever, Syncope Endocrine: Reports: As per HPI. Denies: Fatigue, Heat or cold intolerance, Polydipsia, Polyuria Gastrointestinal: Reports: As per HPI. Denies: Abdominal pain, Constipation, Diarrhea, Hematemesis, Hematochezia, Melena, Nausea, Vomiting Genitourinary: Reports: As per HPI. Denies: Dysuria, Frequency, Hematuria, Incontinence, Retention, Testicular pain, Testicular mass, Urgency Musculoskeletal: Reports: As per HPI, Myalgia. Denies: Arthralgia, Back pain, Gout, Joint swelling, Neck pain Skin: Reports: As per HPI. Denies: Bruising, Change in color, Change in hair/na ils, Lesions, Pruritus, Rash Neurological: Reports: As per HPI, Headache. Denies: Abnormal gait, Confusion, Numbness, Paresthesias, Seizure, Tingling, Tremors, Vertigo, Weakness Psychiatric: Reports: As per HPI. Denies: Anxiety, Auditory hallucinations, Depression, Homicidal thoughts, Suicidal thoughts, Visual hallucinations Hematological/Lymphatic: Reports: As per HPI. Denies: Anemia, Blood Clots, Easy bleeding, Easy bruising, Swollen glands Past Medical History - SOCIAL HISTORY Smoking Status: Current every day smoker Alcohol Use: None Drug Use: None - RESPIRATORY Hx Respiratory Disorders: No Hx Bronchitis: Yes - CARDIOVASCULAR Hx Cardio Disorders: No - NEURO Hx Neuro Disorders: No - GI Hx GI Disorders: No - Hx Genitourinary Disorders: Yes Hx Kidney Stones: Yes - ENDOCRINE Hx Endocrine Disorders: No - MUSCULOSKELETAL Hx Musculoskeletal Disorders: No - PSYCH Hx Psych Problems: No - HEMATOLOGY/ONCOLOGY Hx Hematology/Oncology Disorders: No Family Medical History Any Significant Family History?: No Hx Heart Disease: Grandparents Hx Stroke: Grandparents Physical Exam - General General Appearance: Alert, Oriented x3, Cooperative, Mild distress - Head Head exam: Normal inspection - Eye Eye exam: Normal appearance, PERRL, EOMI Pupils: Normal accommodation - ENT ENT exam: Normal exam, Mucous membranes moist, Normal external ear exam, Normal orophraynx Ear exam: Normal external inspection. negative: External canal tenderness Nasal Exam: Normal inspection. negative: Discharge, Sinus tenderness Mouth exam: Normal external inspection, Tongue normal Teeth exam: Normal inspection. negative: Dental caries Throat exam: Tonsillar erythema. negative: Tonsillar exudate - Neck Neck exam: Normal inspection, Full ROM. negative: Tenderness - Respiratory Respiratory exam: Normal lung sounds bilaterally. negative: Respiratory distress - Cardiovascular Cardiovascular Exam: Regular rate, Normal rhythm, Normal heart sounds - GI/Abdominal GI/Abdominal exam: Soft, Normal bowel sounds. negative: Tenderness - Rectal Rectal exam: Deferred - exam: Deferred - Extremities Extremities exam: Normal inspection, Full ROM, Normal capillary refill. negative: Tenderness - Back Back exam: Reports: Normal inspection, Full ROM. Denies: Muscle spasm, Rash no rufus, Tenderness - Neurological Neurological exam: Alert, CN II-XII intact, Normal gait, Oriented X3 - Psychiatric Psychiatric exam: Normal affect, Normal mood - Skin Skin exam: Dry, Intact, Normal color, Warm Course Vital Signs 08/14/19 20:28 Temperature 97.7 F Pulse Rate 66 Respiratory 18 Rate Blood Pressure 107/69 Pulse Ox 100 Medical Decision Making - Lab Data Result diagrams: 08/14/19 21:02 Disposition Disposition: Discharge Clinical Impression: Viral syndrome Disposition: Home, Self-Care Condition: (1) Good Instructions: Viral Syndrome (ED) Additional Instructions: follow up with family doctor. return sooner if worse. dayquil and nyquil as needed Forms: Patient Portal Access, Return to Work/School Quality - Quality Measures Quality Measures: N/A - Blood Pressure Screening Does Patient Have Any of the Following: No Blood Pressure Classification: Normal BP Reading Systolic Measurement: 107 Diastolic Measurement: 69 Screening for High Blood Pressure: < Normal BP, F/U Not Required > [G8783]
[2019-08-14 21:09] LABS: ABSOLUTE NEUTROPHIL COUNT 4.29; BASO % 0.3 % (0-6); EOS % 0.9 % (0-6); GRAN % 61.8 % (47-80); HEMATOCRIT 47.5 % (42.0-52.0); HEMOGLOBIN 16.2 gm/dl (14.0-18.0); LYMPH % 28.2 % (16-45); MEAN CELL VOLUME 91.5 fl (81-97); MEAN CORPUSCULAR HEMOGLOBIN 31.2 pg (27-33); MEAN CORPUSCULAR HGB CONC 34.1 g/dl (32-36); MEAN PLATELET VOLUME 9.7 fl (7.4-10.4); MONO % 8.8 % (0-9); PLATELET COUNT 340 K/uL (130-400); RED BLOOD COUNT 5.19 M/uL (4.40-5.70); RED CELL DISTRIBUTION WIDTH 12.2 % (11.5-14.5); WHITE BLOOD COUNT W/O DIFF 6.9 K/uL (4.2-12.2)
[2019-08-14 21:17] LABS: STREP A SCREEN NEGATIVE (NEGATIVE)
[2019-08-14 21:26] LABS: INFLUENZA A NEGATIVE (NEGATIVE)
[2019-08-14 21:27] LABS: INFLUENZA B NEGATIVE (NEGATIVE)
[2019-08-14] MEDS ORDERED: IBUPROFEN 600 MG TABLET PO ONE (21:48)
--- NOTE | 2019-08-15 20:58 | RADIOLOGY REPORT ---
EXAM: CHEST 2 VIEWS HISTORY: COUGH, BODY ACHES, CHILLS, HEADACHE, SORE THROAT, NAUSEA. GETTING WORSE. TECHNIQUE: PA and lateral views. COMPARISON: Two-view chest 12/31/18. FINDINGS: The heart size remains at about the upper limits of normal. No definite acute infiltrate is seen. No pleural effusion or pneumothorax evident. IMPRESSION: THE CHEST APPEARS NEGATIVE WITH NO DEFINITE ACUTE INFILTRATE SEEN. JOB NUMBER: [id number] [facility]
== END 2019-08-14 22:15 | disposition home or self-care (01) ==
LOC: ER 20:22
DX: B34.9 Viral infection, unspecified (principal); R05 Cough; R51 Headache; F17.210 Nicotine dependence, cigarettes, uncomplicated
CPT/HCPCS: 71046; 85025; 87400; 87880; 99283; 99284

== ENCOUNTER 2019-12-24 07:26 | Emergency (ER) | payer SELFPAY ==
[2019-12-24] MEDS ORDERED: MAGNESIUM HYDROXIDE/AL HYDROX 30 ML, LIDOCAINE VISC 2% 15ML 15 ML PO ONE ×2 (07:51)
--- NOTE | 2019-12-24 08:01 | Emergency Department Record ---
History of Present Illness - General Chief Complaint: General Stated Complaint: ACID REFLUX WAKING HIM UP Time Seen by Provider: 12/24/19 07:40 Source: Patient Mode of Arrival: Ambulatory Limitations: No limitations - History of Present Illness Initial Comments: pt has frequent burning in his throat at night, acid taste, liquid backing up into his mouth MD Complaint: Abdominal pain Location: Epigastric Severity: Mild Consistency: Intermittent - Related Data Previous Rx's Medication Instructions Recorded Omeprazole [Prilosec] 20 mg PO DAILY #20 12/24/19 Allergies Allergy/AdvReac Type Severity Reaction Status Date / Time onion Allergy DIFFICULTY Verified 12/24/19 07:37 BREATHING red (food color) Allergy SWELLING Verified 12/24/19 07:37 (GENERAL) Travel/Exposure Screening - Travel/Exposure Within Last 30 Days Have you traveled within the last 30 days?: No - Additonal Travel/Exposure Details Have you been exposed to anyone with a communicable illness?: No Review of Systems Reviewed: No additional complaints except as noted below Constitutional: Reports: As per HPI. Denies: Chills, Fever, Malaise, Night sweats, Weakness, Weight change Eyes: Reports: As per HPI. Denies: Eye discharge, Eye pain, Photophobia, Vision change ENT: Reports: As per HPI. Denies: Congestion, Dental pain, Ear pain, Epistaxis, Hearing loss, Throat pain Respiratory: Reports: As per HPI. Denies: Cough, Dyspnea, Hemoptysis, Stridor, Wheezes Cardiovascular: Reports: As per HPI. Denies: Arrhythmia, Chest pain, Dyspnea on exertion, Edema, Murmurs, Orthopnea, Palpitations, Paroxysmal nocturnal dyspnea, Rheumatic Fever, Syncope Endocrine: Reports: As per HPI. Denies: Fatigue, Heat or cold intolerance, Polydipsia, Polyuria Gastrointestinal: Reports: As per HPI, Abdominal pain, Nausea. Denies: Constipation, Diarrhea, Hematemesis, Hematochezia, Melena, Vomiting Genitourinary: Reports: As per HPI. Denies: Dysuria, Frequency, Hematuria, Incontinence, Retention, Testicular pain, Testicular mass, Urgency Musculoskeletal: Reports: As per HPI. Denies: Arthralgia, Back pain, Gout, Joint swelling, Myalgia, Neck pain Skin: Reports: As per HPI. Denies: Bruising, Change in color, Change in hair/nails, Lesions, Pruritus, Rash Neurological: Reports: As per HPI. Denies: Abnormal gait, Confusion, Headache, Numbness, Paresthesias, Seizure, Tingling, Tremors, Vertigo, Weakness Psychiatric: Reports: As per HPI. Denies: Anxiety, Auditory hallucinations, Depression, Homicidal thoughts, Suicidal thoughts, Visual hallucinations Hematological/Lymphatic: Reports: As per HPI. Denies: Anemia, Blood Clots, Easy bleeding, Easy bruising, Swollen glands Past Medical History - SOCIAL HISTORY Smoking Status: Current every day smoker Alcohol Use: None Drug Use: None - RESPIRATORY Hx Respiratory Disorders: Yes Hx Bronchitis: Yes - CARDIOVASCULAR Hx Cardio Disorders: No - NEURO Hx Neuro Disorders: No - GI Hx GI Disorders: No - Hx Genitourinary Disorders: Yes Hx Kidney Stones: Yes - ENDOCRINE Hx Endocrine Disorders: No - MUSCULOSKELETAL Hx Musculoskeletal Disorders: No - PSYCH Hx Psych Problems: No - HEMATOLOGY/ONCOLOGY Hx Hematology/Oncology Disorders: No Family Medical History Any Significant Family History?: Yes Hx Heart Disease: Grandparents Hx Stroke: Grandparents Physical Exam - General General Appearance: Alert, Oriented x3, Cooperative, No acute distress - Head Head exam: Normal inspection - Eye Eye exam: Normal appearance, PERRL, EOMI Pupils: Normal accommodation - ENT ENT exam: Normal exam, Mucous membranes moist, Normal external ear exam, Normal orophraynx Ear exam: Normal external inspection. negative: External canal tenderness Nasal Exam: Normal inspection. negative: Discharge, Sinus tenderness Mouth exam: Normal external inspection, Tongue normal Teeth exam: Normal inspection. negative: Dental caries Throat exam: Normal inspection. negative: Tonsillar erythema, Tonsillar exudate - Neck Neck exam: Normal inspection, Full ROM. negative: Tenderness - Respiratory Respiratory exam: Normal lung sounds bilaterally. negative: Respiratory distress - Cardiovascular Cardiovascular Exam: Regular rate, Normal rhythm, Normal heart sounds - GI/Abdominal GI/Abdominal exam: Soft, Normal bowel sounds. negative: Tenderness - Rectal Rectal exam: Deferred - exam: Deferred - Extremities Extremities exam: Normal inspection, Full ROM, Normal capillary refill. negative: Tenderness - Back Back exam: Reports: Normal inspection, Full ROM. Denies: Muscle spasm, Rash noted, Tenderness - Neurological Neurological exam: Alert, CN II-XII intact, Normal gait, Oriented X3 - Psychiatric Psychiatric exam: Normal affect, Normal mood - Skin Skin exam: Dry, Intact, Normal color, Warm Course Vital Signs 12/24/19 07:32 Temperature 97.9 F Pulse Rate 68 Respiratory 18 Rate Blood Pressure 128/90 Pulse Ox 97 Disposition Disposition: Discharge Clinical Impression: Reflux gastritis Disposition: Home, Self-Care Condition: (1) Good Instructions: Gastroesophageal Reflux Disease (ED) Additional Instructions: follow up with GI doctor. return sooner if worse. sleepelevated. dont eat after 7pm. Prescriptions: Omeprazole [Prilosec] 20 mg PO DAILY #20 cap. Referrals: AMY PARSONS [DOCTOR OF OSTEOPATH] - [facility] [Provider Group] Quality - Quality Measures Quality Measures: N/A - Blood Pressure Screening Does Patient Have Any of the Following: No Blood Pressure Classification: Hypertensive Reading Systolic Measurement: 128 Diastolic Measurement: 90 Screening for High Blood Pressure: < Pre-Hypertensive BP, F/U Documented > [G8950] Pre-Hypertensive Follow-up Interventions: Follow-up with rescreen every year.
== END 2019-12-24 08:20 | disposition home or self-care (01) ==
LOC: ER 07:26
DX: K21.9 Gastro-esophageal reflux disease without esophagitis (principal); F17.210 Nicotine dependence, cigarettes, uncomplicated
CPT/HCPCS: 99283